=== PATIENT | female | born 2000 | race Caucasian/White ===

== ENCOUNTER → 2023-10-09 07:57 | Outpatient (REF) | payer OTHER, SELFPAY ==
[2023-10-09 09:09] LABS: HCG, Serum Qualitative Screen Negative
[2023-10-09 09:12] LABS: Creatine Phosphokinase 61 U/L (30-135); GGTP 14 U/L (12-43); HDL Cholesterol 63 mg/dl; LDL Cholesterol, Calculated 93 mg/dl; Total Cholesterol 168 mg/dl (50-199); Triglyceride 60 mg/dl (10-149); Very Low Density Lipoprotein 12 mg/dl (0-30)
== END ==
LOC: REG 07:57
PROVIDERS: ATTENDING PHYSICIAN Dermatology
DX: Z79.899 Other long term (current) drug therapy (principal)
CPT/HCPCS: 36415; 80061; 82550; 82977; 84703

== ENCOUNTER → 2024-02-22 07:58 | Outpatient (REF) | payer OTHER, SELFPAY ==
[2024-02-22 09:59] LABS: Creatine Phosphokinase 77 U/L (30-135); GGTP 16 U/L (12-43); HCG, Serum Qualitative Screen Negative; HDL Cholesterol 70 mg/dl; LDL Cholesterol, Calculated 130 mg/dl; Total Cholesterol 229 mg/dl (50-199); Triglyceride 149 mg/dl (10-149); Very Low Density Lipoprotein 29 mg/dl (0-30)
== END ==
LOC: REG 07:58
PROVIDERS: ATTENDING PHYSICIAN Registered Nurse; FAMILY PHYSICIAN Physician Assistant Medical
DX: Z79.899 Other long term (current) drug therapy (principal)
CPT/HCPCS: 36415; 80061; 82550; 82977; 84703